=== PATIENT | female | born 1985 | race Two or more races ===

== ENCOUNTER 2016-08-06 08:30 | Outpatient (CLI) | payer MEDICAID ==
[2016-05-22 11:05] VITALS: BMI 34.0
== END 2016-08-06 09:22 | disposition home or self-care (01) ==
LOC: D.LDO 08:30
DX: Z34.83 Encounter for supervision of other normal pregnancy, third trimester (principal); Z3A.32 32 weeks gestation of pregnancy; N89.8 Other specified noninflammatory disorders of vagina

== ENCOUNTER → 2016-08-14 11:18 | Outpatient (CLI) | payer MEDICAID ==
[2016-05-22 11:05] VITALS: BMI 34.0
[~2016-08-14 11:18] MED LIST: IBUPROFEN600 MG PO; PERCOCET 5-3251 TAB PO
== END | disposition home or self-care (01) ==
LOC: D.LDO 11:18
DX: O36.8 Maternal care for other specified fetal problems (principal)

== ENCOUNTER → 2016-08-17 08:21 | Outpatient (CLI) | payer MEDICAID ==
[2016-05-22 11:05] VITALS: BMI 34.0
== END | disposition home or self-care (01) ==
LOC: D.LDO 08:21
DX: O26.893 Other specified pregnancy related conditions, third trimester (principal); Z3A.33 33 weeks gestation of pregnancy

== ENCOUNTER → 2016-08-21 09:19 | Outpatient (CLI) | payer MEDICAID ==
[2016-05-22 11:05] VITALS: BMI 34.0
== END | disposition home or self-care (01) ==
LOC: D.LDO 09:19
DX: O26.893 Other specified pregnancy related conditions, third trimester (principal); Z3A.33 33 weeks gestation of pregnancy

== ENCOUNTER → 2016-08-24 09:30 | Outpatient (CLI) | payer MEDICAID ==
[2016-05-22 11:05] VITALS: BMI 34.0
== END | disposition home or self-care (01) ==
LOC: D.LDO 09:30
DX: O26.893 Other specified pregnancy related conditions, third trimester (principal); Z3A.34 34 weeks gestation of pregnancy

== ENCOUNTER → 2016-08-28 08:12 | Outpatient (CLI) | payer MEDICAID ==
[2016-05-22 11:05] VITALS: BMI 34.0
== END | disposition home or self-care (01) ==
LOC: D.LDO 08:12
DX: O26.893 Other specified pregnancy related conditions, third trimester (principal); Z3A.35 35 weeks gestation of pregnancy

== ENCOUNTER → 2016-09-01 16:03 | Outpatient (CLI) | payer MEDICAID ==
[2016-05-22 11:05] VITALS: BMI 34.0
== END | disposition home or self-care (01) ==
LOC: D.LDO 16:03
DX: O26.893 Other specified pregnancy related conditions, third trimester (principal); Z3A.35 35 weeks gestation of pregnancy

== ENCOUNTER → 2016-09-06 16:17 | Outpatient (CLI) | payer MEDICAID ==
[2016-05-22 11:05] VITALS: BMI 34.0
== END | disposition home or self-care (01) ==
LOC: D.LDO 16:17
DX: O36.8130 Decreased fetal movements, third trimester, not applicable or unspecified (principal); Z3A.36 36 weeks gestation of pregnancy

== ENCOUNTER → 2016-09-10 08:30 | Outpatient (CLI) | payer MEDICAID ==
[2016-05-22 11:05] VITALS: BMI 34.0
== END | disposition home or self-care (01) ==
LOC: D.LDO 08:30
DX: O36.8130 Decreased fetal movements, third trimester, not applicable or unspecified (principal); Z3A.37 37 weeks gestation of pregnancy

== ENCOUNTER → 2016-09-14 09:01 | Outpatient (CLI) | payer MEDICAID ==
[2016-05-22 11:05] VITALS: BMI 34.0
== END | disposition home or self-care (01) ==
LOC: D.LDO 09:01
DX: O36.8130 Decreased fetal movements, third trimester, not applicable or unspecified (principal); Z3A.37 37 weeks gestation of pregnancy; O26.893 Other specified pregnancy related conditions, third trimester

== ENCOUNTER → 2016-09-18 14:15 | Outpatient (CLI) | payer MEDICAID ==
[2016-05-22 11:05] VITALS: BMI 34.0
== END | disposition home or self-care (01) ==
LOC: D.LDO 14:15
DX: O26.893 Other specified pregnancy related conditions, third trimester (principal); Z3A.38 38 weeks gestation of pregnancy

== ENCOUNTER 2016-09-19 23:28 | Outpatient (CLI) | payer MEDICAID ==
[2016-05-22 11:05] VITALS: BMI 34.0
[2016-09-20 00:05] LABS: APPEARANCE HAZY (CLEAR); BILIRUBIN NEGATIVE (NEGATIVE); COLOR YELLOW (YELLOW); GLUCOSE NEGATIVE (NEGATIVE); KETONE NEGATIVE (NEGATIVE); LEUKOCYTE ESTERASE 1+ (NEGATIVE); NITRITE NEGATIVE (NEGATIVE); PH 5.5 (5.0-6.0); PROTEIN NEGATIVE (NEGATIVE); UROBILINOGEN NORMAL (NORMAL)
[2016-09-20 00:13] LABS: BACTERIA MODERATE /hpf (NONE SEEN); EPITHELIAL CELLS 0-5 /hpf (0-5); RED CELLS - URINE OCC /hpf (0-5)
== END 2016-09-20 01:28 | disposition home or self-care (01) ==
LOC: D.LDO 23:28 → D.LD 23:29 → D.LDO 09-20 01:28
PROVIDERS: Obstetrics & Gynecology
DX: Z34.83 Encounter for supervision of other normal pregnancy, third trimester (principal); Z3A.38 38 weeks gestation of pregnancy

== ENCOUNTER → 2016-09-24 08:34 | Outpatient (CLI) | payer MEDICAID ==
[2016-05-22 11:05] VITALS: BMI 34.0
== END | disposition home or self-care (01) ==
LOC: D.LDO 08:34
DX: O26.893 Other specified pregnancy related conditions, third trimester (principal); Z3A.39 39 weeks gestation of pregnancy

== ENCOUNTER → 2016-09-25 15:05 | Outpatient (CLI) | payer MEDICAID ==
[2016-05-22 11:05] VITALS: BMI 34.0
== END | disposition home or self-care (01) ==
LOC: D.LDO 15:05
DX: O26.893 Other specified pregnancy related conditions, third trimester (principal); Z3A.39 39 weeks gestation of pregnancy

== ENCOUNTER 2016-09-27 04:00 | Inpatient (IN) | payer MEDICAID ==
[~2016-09-27] VITALS: Ht 154.9 cm; Wt 82.6 kg
[2016-09-27 04:53] VITALS: BP 120/69; Ht 154.9 cm; Wt 82.6 kg
[2016-09-27 06:03] LABS: HEMATOCRIT 32.4 % (36.0-48.0); HEMOGLOBIN 10.7 g/dL (12-16); MCH 27.1 pg (26.0-34.0); MEAN PLATELET VOLUME 11.6 fL (7.4-10.4); RBC 3.95 10x6/uL (4.00-5.40); RDW 13.3 % (11.5-14.5); WBC 9.2 10x3/uL (4.8-10.8)
[2016-09-27 06:06] LABS: UDS - AMPHET NEGATIVE QUAL (NEGATIVE); UDS - BARB NEGATIVE QUAL (NEGATIVE); UDS - BENZO NEGATIVE QUAL (NEGATIVE); UDS - COCAINE NEGATIVE QUAL (NEGATIVE); UDS - METH NEGATIVE QUAL (NEGATIVE); UDS - OPIATE NEGATIVE QUAL (NEGATIVE); UDS - PCP NEGATIVE QUAL (NEGATIVE); UDS - THC NEGATIVE QUAL (NEGATIVE)
[2016-09-27 06:20] LABS: APPEARANCE CLEAR (CLEAR); BILIRUBIN NEGATIVE (NEGATIVE); COLOR STRAW (YELLOW); GLUCOSE NEGATIVE (NEGATIVE); KETONE NEGATIVE (NEGATIVE); LEUKOCYTE ESTERASE NEGATIVE (NEGATIVE); NITRITE NEGATIVE (NEGATIVE); PROTEIN NEGATIVE (NEGATIVE); RED CELLS - URINE OCC /hpf (0-5); UROBILINOGEN NORMAL (NORMAL); WHITE CELLS - URINE RARE /hpf (0-5)
[2016-09-27 06:21] LABS: BACTERIA FEW /hpf (NONE SEEN); EPITHELIAL CELLS 0-5 /hpf (0-5); MUCUS <1+ /lpf (NONE SEEN)
--- NOTE | 2016-09-27 16:20 | NUR ---
PT AND SIG OTHER AMBULATING IN HALLS TO VENDING MACHINES. PT DENIES PAIN OR NEEDS.
--- NOTE | 2016-09-27 16:52 | NUR ---
ROUNDS MADE. PT LYING IN BED AWAKE. PT DENIES PAIN. REQUEST ORANGE JUICE AND CRANNBERRY JUICE TO DRINK. 2 CARTONS OF BOTH AND LARGE CUP OF ICE SERVED. GUEST DINNER TICKET PROVIDED FOR PT'S SIG OTHER.
--- NOTE | 2016-09-27 17:45 | NUR ---
ROUNDS MADE. PT SITTING UP IN BED W/INFANT TO BREAST. PT EATING HER DINNER. DENIES PAIN OR NEEDS AT PRESENT.
--- NOTE | 2016-09-27 18:30 | NUR ---
ROUNDS MADE. PT SITTING UP IN BED VISITNG W/FAMILY. PAIN AND NEEDS ASSESSED. PT REQUEST ADDITIONAL CRANBERRY AND ORANGE JUICE TO DRINK AND REQUEST MOTRIN FOR ABD CRAMPING THAT SHE RATES 3/10. JUICE SERVED AND MOTRIN ADMINISTERD. SEE EMAR. NO FURTHER NEEDS VOICED AT THIS TIME.
--- NOTE | 2016-09-27 18:47 | NUR ---
REPORT GIVEN TO ONCOMING PM SHIFT.
--- NOTE | 2016-09-27 19:50 | NUR ---
REPORT TO WS STAFF REGARDING PT. WS WILL ASSUME HER CARE.
--- NOTE | 2016-09-27 20:00 | NUR ---
PT RECEIVED UP USING RESTROOM AT THIS TIME. FOB AND IN ROOM WITH PT. INFORMED PT I WOULD BE BACK TO PERFORM ASSESSMENT AND OBTAIN VITALS. PT DENIES NEEDS.
[2016-09-27 20:05] VITALS: BP 128/61
--- NOTE | 2016-09-27 20:05 | NUR ---
PT SITTING UP IN BED AAOX3 . INFANT AND FOB AT BEDSIDE. BP-128/61 O2-99% ON ROOM AIR. PULSE-104 TEMP-98.1. RESPIRATIONS EVEN, NON-LABORED. S/L NOTED TO LEFT WRIST. DRESSING CDI. HEART RRR. LUNG SOUNDS CLEAR BILATERALLY. BOWEL SOUNDS ACTIVE X4 QUADRENTS. ABDOMEN SOFT. FUNDUS FIRM AND MIDLINE U/2. SCANT LOCHIA RUBRA NOTED TO CARMINA PAD AT THIS TIME. PERINEAL AREA FREE OF EDEMA. PT STATES LOCHIA HAS BEEN LIGHT. PT RATES PAIN 3/10 AT THIS TIME. DENIES OTHER NEEDS. BED LOW. PHONE AND CALL LIGHT IN REACH. SRX2.
--- NOTE | 2016-09-27 21:15 | NUR ---
ADMINISTERED MILK OF MAG PER ORDERS AT THIS TIME. PT REQUESTS A CUP OF ICE. STILL RATES PAIN 2/10. DENIES OTHER NEEDS. BED LOW. PHONE AND CALL LIGHT IN REACH. SRX2.
--- NOTE | 2016-09-27 22:50 | NUR ---
PT UP USING SHOWER AT THIS TIME. DENIES NEEDS. BED LINENS CHANGED AT THIS TIME. BED LOW. PHONE AND CALL LIGHT IN REACH. SRX2.
--- NOTE | 2016-09-27 23:15 | NUR ---
PT SITTING UP IN BED PUMPING AT THIS TIME. DENIES NEEDS. BED LOW. PHONE AND CALL LIGHT IN REACH. SRX2.
[2016-09-28 00:10] VITALS: BP 114/62
--- NOTE | 2016-09-28 00:10 | NUR ---
PT SITTING UP IN BED WATCHING TV AT THIS TIME. INFANT IN BASSINET AT BEDSIDE. VSS. PT RATES PAIN 0/10. REQUESTS ICE AND SPRITE AT THIS TIME. DENIES OTHER NEEDS. BED LOW. PHONE AND CALL LIGHT IN REACH. SRX2.
--- NOTE | 2016-09-28 02:08 | NUR ---
PT RESTING QUIETLY AT THIS TIME WITH EYES CLOSED. RESPIRATIONS EVEN, NON-LABORED. NO ACUTE DISTRESS NOTED AT THIS TIME. BED LOW. PHONE AND CALL LIGHT IN REACH. SRX2.
--- NOTE | 2016-09-28 03:03 | NUR ---
PT AWAKE AND ALERT WITH INFANT ON CHEST AT THIS TIME. DENIES NEEDS. BED LOW. PHONE AND CALL LIGHT IN REACH. SRX2.
--- NOTE | 2016-09-28 05:10 | NUR ---
PT RESTING QUIETLY AT THIS TIME. DENIES NEEDS. FOB AND AT BEDSIDE. BED LOW. PHONE AND CALL LIGHT IN REACH. SRX2.
[2016-09-28 05:55] LABS: BASOPHILS 0.2 % (0.0-2.0); EOSINOPHILS 1.2 % (0-7); HEMATOCRIT 29.4 % (36.0-48.0); HEMOGLOBIN 9.6 g/dL (12-16); IMMATURE GRANULOCYTES 0.3 % (0-5); MCHC 32.7 g/dL (31.0-37.0); MCV 82.8 fL (80.0-100.0); MEAN PLATELET VOLUME 11.3 fL (7.4-10.4); MONOCYTES 7.8 % (2-11); NEUTROPHILS 71.5 % (40-80); RBC 3.55 10x6/uL (4.00-5.40); RDW 13.5 % (11.5-14.5); WBC 10.6 10x3/uL (4.8-10.8)
[2016-09-28 06:04] LABS: PLATELET COUNT 203 10x3/uL (130-400)
[2016-09-28 07:26] LABS: RAPID PLASMA REAGIN Non Reactive (Non Reactive)
[2016-09-28] MEDS ORDERED: PERCOCET 5-3251 TAB PO (07:57)
[2016-09-28] MEDS ORDERED: IBUPROFEN600 MG PO (07:57)
--- NOTE | 2016-09-28 08:00 | NUR ---
PT SITTING IN BED HOLDING AND TALKING SOFTLY TO IT. SHIFT ASSESSMENT WAS PERFORMED AND VITAL SIGNS TAKEN AND DOCUMENTED. FOB IN ROOM RESTING ON COUCH. FUNDUS FIRM AND MIDLINE WITH SCANT BLEEDING. SALINE LOCK TO LEFT HAND. PATENT WITH NO REDNESS OR SWELLING NOTED. STATES PAIN A 0 ON NUMERIC SCALE. STATES VOIDING WITH NO PROBLEMS AND IS LOOKING FORWARD TO GOING HOME TODAY. S/R UP X 2, BED IN LOWEST POSITION, CALL LIGHT WITHIN REACH. WILL CONTINUE TO MONITRO.
[2016-09-28 08:05] VITALS: BP 121/73
--- NOTE | 2016-09-28 08:23 | NUR ---
PATIENT SITTING UP BURMESE STYLE IN HER BED. SHE UNDERSTANDS THAT SHE WILL GET TO GO HOME TODAY AND IS WITHOUT QUESTIONS. SHE HAS HER BABY IN HER LEFT ELBOW, CELL PHONE IN HER RIGHT HAND. FOB LAYING ON THE COUCH AWAKE AND ALERT, QUESTIONS ANSWERED. PATIENT IS PREPARING TO EAT HER BREAKFAST. SHE DENIES PAIN. CALL LIGHT IS WITHIN HER REACH. ENCOURAGED HER TO CALL FOR ANY NEEDS, REQUESTS.
--- NOTE | 2016-09-28 08:29 | NUR ---
PROVIDED ORANGE JUICE AND CRANBERRY JUICE ALONG WITH FRESH WATER AND A CUP OF ICE. STATES NO OTHER NEEDS AT THIS TIME. WILL CONTINUE TO MONITOR.
--- NOTE | 2016-09-28 10:30 | NUR ---
IV SL REMOVED FROM [facility] PATIENT'S LEFT HAND, CATHETER FULLY INTACT. SHE DENIES NEEDS AT THIS TIME. ENCOURAGED HER TO NOTIFY NURSE IF ANYTHING CHANGES. SHE DENIES PAIN/DISCOMFORT.
--- NOTE | 2016-09-28 11:40 | NUR ---
PATIENT REQUESTS 2 VANCE TO GO WITH THE LUNCH THE FOB BROUGHT IN TO HER. SHE DENIES OTHER NEEDS AT THIS TIME.
--- NOTE | 2016-09-28 13:22 | NUR ---
RECEIVED REPORT THAT THE [facility] WILL NOT BE DISCHARGED TO GO HOME. WILL ROOM HER IN.
--- NOTE | 2016-09-28 14:24 | NUR ---
DISCUSSED ROOMING IN WITH THE PATIENT. SHE UNDERSTANDS THE PROCESS. SHE WILL BE MOVING TO ANOTHER ROOM FOR THIS AND VOICES UNDERSTANDING. SHE HAS COMPANY SO WILL USE CALL LIGHT WHEN READY TO DISCUSS DISCHARGE PAPERWORK.
--- NOTE | 2016-09-28 15:10 | NUR ---
AFTER DISCUSSING PATIENT'S DISCHARGE INSTRUCTIONS, INCLUDING HER FOLLOW UP APPT AND MEDICATIONS, WE TRANSFERRED HER TO ROOM 1216 WITH THE HELP OF HER SISTER IN LAW. ALL BELONGINGS MOVED AND PRESCRIPTIONS GIVEN. SHE DENIED QUESTIONS REGARDING HER PLAN FOR SELF CARE. SHE VOICES UNDERSTANDING OF ROOMING IN. PHONE NUMBERS FOR ASSISTANCE GIVEN.
== END 2016-09-28 15:10 | disposition home or self-care (01) | DRG 775 ==
LOC: D.LD 04:00
PROVIDERS: ADMIT Specialist
PROC: 10E0XZZ Delivery of Products of Conception, External Approach (ICD-10-PCS; principal; 2016-09-27)
DX: O99.334 Smoking (tobacco) complicating childbirth (principal); O69.89X0 Labor and delivery complicated by other cord complications, not applicable or unspecified; Z3A.39 39 weeks gestation of pregnancy; Z37.0 Single live birth; O69.81X0 Labor and delivery complicated by cord around neck, without compression, not applicable or unspecified; Z68.34 Body mass index [BMI] 34.0-34.9, adult; O99.324 Drug use complicating childbirth; F12.90 Cannabis use, unspecified, uncomplicated

== ENCOUNTER 2017-07-30 12:11 | Emergency (ER) | payer OTHER ==
[2016-09-27 04:53] VITALS: BMI 34.4
[2017-09-06] MEDS ORDERED: AMBIEN10 MG PO (05:12)
== END 2017-07-30 13:20 | disposition home or self-care (01) ==
LOC: D.ER 12:11
DX: B34.9 Viral infection, unspecified (principal)

== ENCOUNTER → 2017-08-09 15:26 | Outpatient (CLI) | payer OTHER ==
[2016-09-27 04:53] VITALS: BMI 34.4
[~2017-08-09 15:26] MED LIST changes: +AMBIEN10 MG PO
== END | disposition home or self-care (01) ==
LOC: D.LDO 15:26
DX: O76 Abnormality in fetal heart rate and rhythm complicating labor and delivery (principal); Z3A.00 Weeks of gestation of pregnancy not specified

== ENCOUNTER → 2017-08-12 10:29 | Outpatient (CLI) | payer OTHER ==
[2016-09-27 04:53] VITALS: BMI 34.4
== END | disposition home or self-care (01) ==
LOC: D.LDO 10:29
DX: O76 Abnormality in fetal heart rate and rhythm complicating labor and delivery (principal); Z3A.35 35 weeks gestation of pregnancy

== ENCOUNTER → 2017-08-14 17:10 | Outpatient (CLI) | payer OTHER ==
[2016-09-27 04:53] VITALS: BMI 34.4
== END | disposition home or self-care (01) ==
LOC: D.LDO 17:10
DX: O26.893 Other specified pregnancy related conditions, third trimester (principal); Z3A.35 35 weeks gestation of pregnancy

== ENCOUNTER → 2017-08-23 12:38 | Outpatient (CLI) | payer OTHER ==
[2016-09-27 04:53] VITALS: BMI 34.4
[~2017-08-23 12:38] MED LIST changes: +HYDROCODON-ACE1 EAC7 PO; +MOTRIN600 MG PEG
== END | disposition home or self-care (01) ==
LOC: D.LDO 12:38
DX: O26.893 Other specified pregnancy related conditions, third trimester (principal); Z3A.37 37 weeks gestation of pregnancy

== ENCOUNTER 2017-09-09 04:58 | Inpatient (IN) | payer OTHER ==
[~2017-09-09] VITALS: Ht 154.9 cm; Wt 83.0 kg
[~2017-09-09 04:58] MED LIST changes: -HYDROCODON-ACE1 EAC7 PO; -MOTRIN600 MG PEG
[2017-09-09 05:04] VITALS: BP 119/69; Ht 154.9 cm; Wt 83.0 kg
[2017-09-09 06:09] LABS: HEMOGLOBIN 11.2 g/dL (12-16); MCHC 32.9 g/dL (31.0-37.0); MCV 78.9 fL (80.0-100.0); MEAN PLATELET VOLUME 10.5 fL (7.4-10.4); RBC 4.31 10x6/uL (4.00-5.40); RDW 14.1 % (11.5-14.5); WBC 7.3 10x3/uL (4.8-10.8)
[2017-09-09 06:14] LABS: APPEARANCE CLEAR (CLEAR); BILIRUBIN NEGATIVE (NEGATIVE); COLOR YELLOW (YELLOW); GLUCOSE NEGATIVE (NEGATIVE); KETONE NEGATIVE (NEGATIVE); NITRITE NEGATIVE (NEGATIVE); PROTEIN NEGATIVE (NEGATIVE); SPECIFIC GRAVITY 1.015 (1.005-1.020); UROBILINOGEN NORMAL (NORMAL)
[2017-09-09 19:15] VITALS: BP 119/61
[2017-09-10] VITALS (9 sets, daily range): BP systolic 102–122; BP diastolic 52–68
[2017-09-10 06:04] LABS: BASOPHILS 0.2 % (0-2); EOSINOPHILS 1.2 % (0-7); HEMATOCRIT 34.8 % (36.0-48.0); HEMOGLOBIN 11.3 g/dL (12-16); IMMATURE GRANULOCYTES 0.5 % (0-5); LYMPHOCYTES 21.3 % (15-50); MCH 26.2 pg (26.0-34.0); MCHC 32.5 g/dL (31.0-37.0); MCV 80.7 fL (80.0-100.0); MEAN PLATELET VOLUME 10.6 fL (7.4-10.4); MONOCYTES 8.6 % (2-11); NEUTROPHILS 68.2 % (40-80); PLATELET COUNT 215 10x3/uL (130-400); RBC 4.31 10x6/uL (4.00-5.40); RDW 14.2 % (11.5-14.5)
[2017-09-10 06:13] LABS: RAPID PLASMA REAGIN Non Reactive (Non Reactive)
[2017-09-10 06:25] LABS: WBC 10.4 10x3/uL (4.8-10.8)
[2017-09-11 00:30] VITALS: BP 111/55
[2017-09-11 07:55] VITALS: BP 116/76
[2017-09-11 08:49] LABS: BASOPHILS 0.2 % (0-2); EOSINOPHILS 1.4 % (0-7); HEMATOCRIT 34.8 % (36.0-48.0); HEMOGLOBIN 11.3 g/dL (12-16); IMMATURE GRANULOCYTES 0.3 % (0-5); MCHC 32.5 g/dL (31.0-37.0); MEAN PLATELET VOLUME 10.3 fL (7.4-10.4); MONOCYTES 6.5 % (2-11); NEUTROPHILS 68.6 % (40-80); PLATELET COUNT 217 10x3/uL (130-400); RBC 4.35 10x6/uL (4.00-5.40); RDW 14.2 % (11.5-14.5); WBC 9.2 10x3/uL (4.8-10.8)
[2017-09-11] MEDS ORDERED: HYDROCODON-ACE1 EAC7 PO (09:02)
[2017-09-11] MEDS ORDERED: MOTRIN600 MG PEG (09:02)
== END 2017-09-11 10:17 | disposition home or self-care (01) | DRG 767 ==
LOC: D.LD 04:58
PROVIDERS: Obstetrics & Gynecology
PROC: 10E0XZZ Delivery of Products of Conception, External Approach (ICD-10-PCS; principal; 2017-09-09)
PROC: 0UB70ZZ Excision of Bilateral Fallopian Tubes, Open Approach (ICD-10-PCS; 2017-09-10)
DX: O99.214 Obesity complicating childbirth (principal); Z3A.39 39 weeks gestation of pregnancy; Z37.0 Single live birth; Z30.2 Encounter for sterilization; Z30.09 Encounter for other general counseling and advice on contraception; O99.02 Anemia complicating childbirth; O99.344 Other mental disorders complicating childbirth

== ENCOUNTER 2018-03-16 19:33 | Inpatient (IN) | payer MEDICAID ==
[~2018-03-16] VITALS: Ht 154.9 cm; Wt 77.3 kg
[~2018-03-16 19:33] MED LIST changes: +HYDROCODON-ACE1 EAC7 PO; +MOTRIN600 MG PEG
[2018-03-16] MEDS ORDERED: ADIPEX-P37.5 MG PO (19:45)
[2018-03-16 20:02] LABS: BASOPHILS 0.1 % (0-2); EOSINOPHILS 0.1 % (0-7); HEMATOCRIT 39.1 % (36.0-48.0); HEMOGLOBIN 13.6 g/dL (12-16); IMMATURE GRANULOCYTES 0.3 % (0-5); LYMPHOCYTES 5.2 % (15-50); MCH 28.4 pg (26.0-34.0); MCHC 34.8 g/dL (31.0-37.0); MCV 81.6 fL (80.0-100.0); MEAN PLATELET VOLUME 9.8 fL (7.4-10.4); MONOCYTES 5.7 % (2-11); NEUTROPHILS 88.6 % (40-80); PLATELET COUNT 216 10x3/uL (130-400); RBC 4.79 10x6/uL (4.00-5.40); RDW 12.5 % (11.5-14.5); WBC 13.8 10x3/uL (4.8-10.8)
[2018-03-16 20:26] LABS: ALBUMIN 3.2 g/dL (3.4-5.0); ALKALINE PHOSPHATASE 97 U/L (46-116); ALT (SGPT) 34 U/L (10-68); BILIRUBIN - TOTAL 0.55 mg/dL (0.2-1.3); CALC OSMOLALITY 270 mosm/kg (275-300); CALCIUM 8.2 mg/dL (8.5-10.1); CARBON DIOXIDE 27.7 mmol/L (21.0-32.0); CHLORIDE - SERUM 101 mmol/L (98-107); CREATININE - SERUM 0.9 mg/dL (0.6-1.3); GLUCOSE 119 mg/dL (74-106); LIPASE 95 U/L (73-393); POTASSIUM - SERUM 3.1 mmol/L (3.5-5.1); PROTEIN - SERUM 7.5 g/dL (6.4-8.2); SODIUM 136 mmol/L (136-145); UREA NITROGEN 7 mg/dL (7-18); eGFR NON AFRICAN AMERICAN 78 mL/min (90-120)
[2018-03-16 20:34] LABS: APPEARANCE HAZY (CLEAR); BILIRUBIN NEGATIVE (NEGATIVE); COLOR YELLOW (YELLOW); GLUCOSE NEGATIVE (NEGATIVE); KETONE NEGATIVE (NEGATIVE); NITRITE NEGATIVE (NEGATIVE); PROTEIN 1+ mg/dL (NEGATIVE); UROBILINOGEN NORMAL (NORMAL)
[2018-03-16 20:35] LABS: WHITE CELLS - URINE 0-5 /hpf (0-5)
[2018-03-16 20:36] LABS: BACTERIA MODERATE /hpf (NONE SEEN)
[2018-03-16 20:38] LABS: YEAST <1+ /hpf (NONE SEEN)
[2018-03-16 21:48] VITALS: BP 100/49
[2018-03-17] VITALS (7 sets, daily range): BP systolic 96–129; BP diastolic 53–66; Ht 154.9 cm; Wt 77.3 kg
[2018-03-17 05:06] LABS: BASOPHILS 0.1 % (0-2); EOSINOPHILS 0 % (0-7); HEMATOCRIT 36.6 % (36.0-48.0); HEMOGLOBIN 12.7 g/dL (12-16); IMMATURE GRANULOCYTES 0.2 % (0-5); LYMPHOCYTES 12.2 % (15-50); MCH 28.3 pg (26.0-34.0); MCHC 34.7 g/dL (31.0-37.0); MCV 81.5 fL (80.0-100.0); MEAN PLATELET VOLUME 9.8 fL (7.4-10.4); MONOCYTES 6.6 % (2-11); NEUTROPHILS 80.9 % (40-80); PLATELET COUNT 195 10x3/uL (130-400); RBC 4.49 10x6/uL (4.00-5.40); RDW 12.5 % (11.5-14.5)
[2018-03-17 05:19] LABS: WBC 8.8 10x3/uL (4.8-10.8)
[2018-03-17 05:21] LABS: CALC OSMOLALITY 277 mosm/kg (275-300); CARBON DIOXIDE 24.4 mmol/L (21.0-32.0); CHLORIDE - SERUM 107 mmol/L (98-107); CREATININE - SERUM 0.8 mg/dL (0.6-1.3); GLUCOSE 96 mg/dL (74-106); POTASSIUM - SERUM 3.2 mmol/L (3.5-5.1); SODIUM 141 mmol/L (136-145); eGFR NON AFRICAN AMERICAN 89 mL/min (90-120)
[2018-03-17 05:23] LABS: UREA NITROGEN 4 mg/dL (7-18)
[2018-03-18] MEDS ORDERED: FLAGYL500 MG PO (09:18)
[2018-03-18] MEDS ORDERED: LEVAQUIN750 MG PO (09:18)
== END 2018-03-18 14:16 | disposition home or self-care (01) | DRG 392 ==
LOC: D.ER 19:33 → D.MS 22:12
PROVIDERS: Family Medicine
DX: K52.9 Noninfective gastroenteritis and colitis, unspecified (principal); F17.200 Nicotine dependence, unspecified, uncomplicated